=== PATIENT | male | born 1960 | race Caucasian/White ===

== ENCOUNTER 2016-06-17 07:08 | Emergency (ER) ==
[2016-06-17] MEDS ORDERED: ZOFRAN IV ONE (07:30)
[2016-06-17] MEDS ORDERED: TORADOL IM ONE (07:30)
[2016-06-17] MEDS ORDERED: NS 1,000 ML IV ONE (07:30)
--- NOTE | 2016-06-17 07:36 | PROVIDER DOCUMENTATION ---
HPI-Abdominal Pain/GI Problem <Hunter Cutler - Last Filed: 06/17/16 10:55> - General Source: patient Unable to obtain history due to:: urgency - History of Present Illness-ABD Abdominal Pain Onset Location: reports: RUQ, epigastric (56 year old presents after complaining of severe RUQ pain this morning associated with nausea and vomiting. He has a history of pancreatitis in the past. Denies any chest pain, fever, hemetemesis, fever, or diarrhea) Pain Radiation: reports: RUQ, epigastric Quality of Pain: reports: cramping, indigestion Severity in ED: reports: moderate Onset/Duration: reports: 1-3 hours ago Timing: reports: still present, intermittent Activities at Onset: reports: light activity Exposure to sick contacts?: No Modifying Factors: improves with: immobilization Associated Symptoms: reports: heartburn, loss of appetite, vomiting Last BM: this morning Dark Stools Present?: reports: none noticed Rectal Bleeding: reports: none Rectal Pain: reports: none Emesis Description: reports: clear Bruising or Bleeding Gums?: No Similar Symptoms Previously?: Yes (years ago) Recently seen or treated by another doctor?: No <Flex Melgar I - Last Filed: 06/17/16 11:03> - General Chief Complaint: Abdominal Pain Stated Complaint: ABD PAIN/VOMITING Time Seen by Provider: 06/17/16 07:27 Allergies/Adverse Reactions: Patient Allergies Allergy/AdvReac Type Severity Reaction Status Date / Time No Known Allergies Allergy Verified 10/12/13 10:25 Home Medications: Home Medication List Medication Instructions Recorded Confirmed Last Taken Type Metformin HCl [Glucophage] 1,000 mg PO BID 10/12/13 06/17/16 06/16/16 17:00 History Fenofibrate 160 mg PO DAILY 06/17/16 06/17/16 06/16/16 08:00 History Glimepiride 2 mg PO DAILY 06/17/16 06/17/16 06/16/16 08:00 History LISINOpril [Prinivil] 2.5 mg PO DAILY 06/17/16 06/17/16 06/16/16 08:00 History LOVAstatin [Mevacor] 20 mg PO WSUPPER 06/17/16 06/17/16 06/16/16 17:00 History Review of Systems - Adult - REVIEW OF SYSTEMS - ADULT Constitutional: reports: no symptoms reported Eyes: reports: no symptoms reported Ears, Nose, Mouth & Throat: reports: no symptoms reported Cardiovascular: reports: no symptoms reported Respiratory: reports: no symptoms reported Gastrointestinal: reports: see HPI, abdominal pain, nausea, vomiting. denies: hematemesis, diarrhea, rectal bleeding Genitourinary: reports: no symptoms reported Musculoskeletal: reports: no symptoms reported Integumentary: reports: no symptoms reported Neurological: reports: no symptoms reported Psychiatric: reports: no symptoms reported Endocrine: reports: no symptoms reported Hematologic/Lymphatic: reports: no symptoms reported Allergic/Immunologic: reports: no symptoms reported All Other Systems: Reviewed and Negative <Flex Melgar I - Filed: 06/17/16 11:03> Past History - Adult - PAST MEDICAL HISTORY-ADULT Review of Records: reports: Old Records Reviewed, Nursing Assessment Review, Medications Reviewed, Social history reviewed & non-contributory. Major Childhood Illnesses: reports: denies history Cardiovascular: reports: hyperlipidemia Respiratory: reports: denies history Gastrointestinal: reports: denies history Obstetrical/Gynecological: reports: denies history Genitourinary: reports: denies history Musculoskeletal: reports: denies history Neurological: reports: denies history Endocrine/Immune: reports: Diabetes Other Conditions: reports: denies history - FAMILY HISTORY Family History: reviewed, not pertinent <Flex Melgar I Filed: 06/17/16 11:03> Physical Exam-General - PHYSICAL EXAM-ADULT Initial Vital Signs Reviewed: Yes - CONSTITUTIONAL General Appearance: appears well, alert, mild distress - EYES Eyes: PERRL/EOMI, pink conjunctivae, fundi clear, no AV nicking - HEAD, EARS, NOSE, MOUTH & THROAT HENMT: normocephalic/atraumatic, moist mucous membranes, normal ENT inspection - NECK Neck: non-tender, full range of motion, supple - RESPIRATORY Respiratory: chest non-tender, lungs clear, normal breath sounds - CARDIOVASCULAR Cardiovascular: normal peripheral pulses, regular rate, rhythm, no edema - CHEST (BREASTS) Chest/Breast: deferred - GASTROINTESTINAL (ABDOMEN) Abdominal Exam: normal bowel sounds, no organomegaly, tenderness (RUQ area and epigastric area). 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, grossly normal, no motor/sensory deficits - PSYCHIATRIC Psych/Mental Status: normal mood/affect, normal thought content, normal thought process <Flex Melgar I - Last Filed: 06/17/16 11:03> Progress - PLAN OF CARE/RESULTS Progress/Plan/Lab Results: Vital Signs Temp Pulse Resp BP Pulse Ox 06/17/16 07:16 97.5 F L 75 18 158/93 100 No Known Allergies Allergy (Verified 10/12/13 10:25) Metformin HCl [Glucophage] 1,000 mg PO BID 10/12/13 Fenofibrate 160 mg PO DAILY 06/17/16 Glimepiride 2 mg PO DAILY 06/17/16 LISINOpril [Prinivil] 2.5 mg PO DAILY 06/17/16 LOVAstatin [Mevacor] 20 mg PO WSUPPER 06/17/16 Dietary Diet NPO Start FriJun 17 726 I&O 06/16/16 06/17/16 06/18/16 06:59 06:59 06:59 Output Total 60 Balance -60 Laboratory 06/17/16 06/17/16 06/17/16 07:52 07:40 07:40 WBC 12.11 H RBC 4.71 Hgb 14.6 Hct 41.7 L MCV 88.5 MCH 31.0 MCHC 35.0 RDW Std Deviation 13.1 Plt Count 224 MPV 12.0 H Immature Gran % (Auto) 0.5 Neut % (Auto) 77.1 H Lymph % (Auto) 13.6 L Leslie % (Auto) 6.9 Eos % (Auto) 1.4 Baso % (Auto) 0.5 Immature Gran # (Auto) 0.06 H Neut # (Auto) 9.33 H Lymph # (Auto) 1.65 Leslie # (Auto) 0.84 H Eos # (Auto) 0.17 Baso # (Auto) 0.06 Sodium 135 L Potassium 4.8 Chloride 98 Carbon Dioxide 25 Anion Gap 12 BUN 13 Creatinine 0.8 Estimated GFR/1.73 m2 > 60 BUN/Creatinine Ratio 16 Glucose 326 H Calculated Osmolality 283 Calcium 9.8 Total Bilirubin 0.50 AST 23 ALT 36 Alkaline Phosphatase 96 Total Protein 7.1 Albumin 4.5 Globulin 2.6 Albumin/Globulin Ratio 1.7 Amylase 59 Lipase 40 Urine Source CLEAN CATCH Urine Color STRAW Urine Turbidity CLEAR Urine pH 5.0 Ur Specific [place] 1.023 Urine Protein NEGATIVE Ur Glucose (Stick) >1000 A Ur Ketones (Stick) NEGATIVE Urine Blood NEGATIVE Urine Nitrite NEGATIVE Urine Bilirubin NEGATIVE Urobilinogen Dipstick NORMAL Urine Leukocytes NEGATIVE Urine WBC (Auto) <10 Urine RBC (Auto) <10 U Epithel Cells (Auto) <10 Urine Bacteria (Auto) NEGATIVE Orders Category Date Time Status Saline Loc DIRECTED Care 06/17/16 07:27 Active NPO Diet 06/17/16 07:27 Active US GB < RUQ (LIMITED) [US] Stat Exams 06/17/16 07:29 Draft AMYLASE [CHEM] Stat Lab 06/17/16 07:40 Completed CBC WITH ELECTRONIC DIFF [HEME] Stat Lab 06/17/16 07:40 Completed COMPREHENSIVE METABOLIC PANEL [CHEM] Stat Lab 06/17/16 07:40 Completed LIPASE [CHEM] Stat Lab 06/17/16 07:40 Completed URINALYSIS W/POSS RFLX CULT [URINALYSIS] Stat Lab 06/17/16 07:52 Completed 0.9% Sodium Chloride Inj [Ns] 1,000 ml Med 06/17/16 07:30 Discontinued IV 999 mls/hr Famotidine [Pepcid] Med 06/17/16 07:44 Discontinued 20 mg IV NOW ONE Ketorolac [Toradol] Med 06/17/16 07:30 Discontinued 30 mg IM NOW ONE Ondansetron [Zofran] Med 06/17/16 07:30 Discontinued 4 mg IV NOW ONE Sodium Chloride 0.9% Med 06/17/16 07:44 Discontinued 5 - 10 ml INJ NOW ONE patient will be d/c home with RX, f/u with Cheri, pt understood results and instructions, pt was clinically stable - ULTRASOUND (By Radiology) 1 US Study: Gallbladder Impression: Abnormal US Results: numerous gallstones in gb, no cholecystitis, fatty liver <Hunter Cutler - Last Filed: 06/17/16 10:55> - PLAN OF CARE/RESULTS Progress/Plan/Lab Results: 0740: Hemodynamically stable. Awaiting labs and imaging. Denies complaints. <Flex Melgar I - Last Filed: 06/17/16 11:03> Departure - Departure Time of Disposition Order: 10:55 Certified Medical Emergency: Emergent <Hunter Cutler - Last Filed: 06/17/16 10:55> - Departure Time of Disposition Order: 11:01 Certified Medical Emergency: Emergent <Flex Melgar I - Last Filed: 06/17/16 11:03> - Departure DIAGNOSIS: Biliary colic Disposition: HOME 01 Condition: Stable Additional Instructions: f/u with ( call for f/u) ED Follow Up Instructions: You have been treated by a care provider in the Emergency Department. These instructions are being provided to you so you can have an understanding of how to care for yourself upon discharge. Upon discharge from the Emergency Department, you are responsible for making arrangements for follow-up care by a physician of your choice. Take all prescribed medications as directed. Return to the Emergency Department immediately for any new or worsening symptoms. You may call the Physician Referral phone number at [phone] to obtain a list of Physicians who are taking new patients. Referrals: Yanira Leblanc MD [Primary Care Provider] - Santosh Goff MD [STAFF PHYSICIAN] - (call for f/u) Instructions: Biliary Colic Attestation - Scribe Verification/Attestation Scribe:: Hunter Cutler Acting as Scribe for:: Flex Melgar Scribe documention review:: This chart was documented by a scribe and accurately reflects the service the provider performed and the decisions made by the provider. <Hunter Cutler - Last Filed: 06/17/16 10:55> Physician Attestation - Physician Attestation I, the provider, attest to the following statement:: Flex Melgar Physician documentation Attestation:: This documentation recorded by the scribe accurately reflects the service I personally performed and the decisions made by me. <Hunter Cutler - Last Filed: 06/17/16 10:55> - Physician Attestation I, the provider, attest to the following statement:: Flex Melgar Physician documentation Attestation:: This documentation recorded by the scribe accurately reflects the service I personally performed and the decisions made by me. <Flex Melgar I - Last Filed: 06/17/16 11:03>
[2016-06-17] MEDS ORDERED: SODIUM CHLORIDE 0.9% INJ ONE (07:44)
[2016-06-17] MEDS ORDERED: PEPCID IV ONE (07:44)
[2016-06-17 07:54] LABS: MANUAL DIFF NEEDED? NO
[2016-06-17 07:59] LABS: URINE CULTURE NEEDED? NO; URINE MICRO REVIEW NEEDED? NO; URINE SOURCE CLEAN CATCH
[2016-06-17 08:01] LABS: BASO% 0.5 % (0.0-0.8); EOS# 0.17 X1000 (0.0-0.7); EOS% 1.4 % (0.0-10.0); HEMATOCRIT 41.7 % (42.0-52.0); HEMOGLOBIN 14.6 g/dL (14.0-18.0); IMM GRAN# 0.06 X1000 (0.0-0.04); IMM GRAN% 0.5 % (0.0-0.5); LYMPH# 1.65 X1000 (1.2-3.4); LYMPH% 13.6 % (20.5-51.1); MCV 88.5 FL (81-99); MONO# 0.84 X1000 (0.11-0.59); MONO% 6.9 % (1.7-9.3); NEUT% 77.1 % (42.2-75.2); PLT 224 X1000 (130-400); RBC 4.71 XMIL (4.7-6.1)
[2016-06-17 08:05] LABS: BILIRUBIN URINE NEGATIVE (NEGATIVE); BLOOD URINE NEGATIVE (NEGATIVE); COLOR STRAW; GLUCOSE URINE >1000 mg/dL (NEGATIVE); LEUKOCYTES URINE NEGATIVE (NEGATIVE); NITRITE URINE NEGATIVE (NEGATIVE); PROTEIN URINE NEGATIVE (NEGATIVE); SP GRAVITY URINE 1.023; TURBIDITY URINE CLEAR (CLEAR); UROBILINOGEN URINE NORMAL (NORMAL)
[2016-06-17 08:06] LABS: UR EPITHELIAL CELLS <10 /HPF (<10); URINE BACTERIA NEGATIVE /HPF; URINE RBC <10 /HPF (<10); URINE WBC <10 /HPF (<10)
[2016-06-17 08:12] LABS: AGAP 12; ALBUMIN 4.5 g/dL (3.5-5.0); ALKALINE PHOSPHATASE 96 U/L (32-122); AMYLASE 59 U/L (20-200); BUN 13 mg/dL (8-22); CALCIUM 9.8 mg/dL (8.8-10.2); CHLORIDE 98 mmol/L (98-107); COSMO 283; GOT 23 U/L (10-34); GPT 36 U/L (10-44); LIPASE 40 U/L (13-60); POTASSIUM 4.8 mmol/L (3.5-5.1); SODIUM 135 mmol/L (136-145); TCO2 25 mmol/L (25-35); TOTAL PROTEIN 7.1 g/dL (6.3-8.3)
--- NOTE | 2016-06-17 09:10 | Diag Imaging Result Document ---
PROCEDURE NAME: US GB < RUQ (LIMITED) - 06/17/2016 RIGHT UPPER QUADRANT ULTRASOUND, 06/17/2016: COMPARISON: None. FINDINGS: There is severe fatty change of the liver. There are numerous shadowing gallstones in the gallbladder. The gallbladder is not overly distended. No obvious wall thickening or free fluid. The common bile duct measures 4 mm. Sonographic Willoughby sign is negative. The pancreas and right kidney are normal. Aorta IVC and main portal vein are patent. IMPRESSION: 1. Numerous gallstones in the gallbladder, but no definite cholecystitis. 2. Severe fatty liver.
[2016-06-17 11:29] VITALS: BP 128/53
== END 2016-06-17 11:28 | disposition home or self-care (01) ==
LOC: ED 07:08
DX: K80.50 Calculus of bile duct without cholangitis or cholecystitis without obstruction (principal); R10.11 Right upper quadrant pain; R10.13 Epigastric pain; R11.2 Nausea with vomiting, unspecified; K30 Functional dyspepsia; R12 Heartburn; R10.811 Right upper quadrant abdominal tenderness; R10.816 Epigastric abdominal tenderness; E78.5 Hyperlipidemia, unspecified; E11.9 Type 2 diabetes mellitus without complications; Z79.899 Other long term (current) drug therapy
CPT/HCPCS: 76705; 80053; 81001; 82150; 83690; 85025; J1885; J2405; J7030; S0028